=== PATIENT | female | born 1950 ===

== ENCOUNTER 2020-10-01 07:04 | Day surgery (SDC) | payer OTHER ==
[~2020-10-01 07:04] MED LIST: B-100 COMPLEX100 MG PO; CENTRUM SILVER1 EAC2 PO; FLECAINIDE ACE100 MG PO; LIPITOR20 MG PO; METFORMIN HCL500 M3 PO; PRILOSEC OTC20 MG PO; TOPROL XL100 M1 PO; XARELTO20 M1 PO
[2020-10-01] MEDS ORDERED: ULTRACET PO (13:10)
[2020-10-01] MEDS ORDERED: MACROBID 100 M100 MG PO (13:10)
== END 2020-10-01 16:35 | disposition home or self-care (01) ==
LOC: CIR.AMB 07:04
PROVIDERS: ATTEND Obstetrics & Gynecology Gynecology
DX: N81.6 Rectocele (principal); N81.5 Vaginal enterocele; Z20.822 Contact with and (suspected) exposure to COVID-19